=== PATIENT | female | born 1980 | race African-American/Black ===

== ENCOUNTER 2016-12-20 07:19 | Day surgery (SDC) | payer MEDICAID ==
[2016-12-20 08:57] LABS: GLUCOSE CSF 51 mg/dL (41-75)
[2016-12-21] MEDS ORDERED: ARIP30TA3 PO (15:48)
[2016-12-21] MEDS ORDERED: DIPH25CA83 PO (18:09)
[2016-12-21] MEDS ORDERED: BUPR100T5 PO (18:09)
[2016-12-21] MEDS ORDERED: HYDR12.529 PO (18:09)
[2016-12-21] MEDS ORDERED: HALO2TAB PO (18:09)
== END 2016-12-20 12:30 | disposition home or self-care (01) ==
LOC: RAD 07:19
PROVIDERS: ATTEND Psychiatry & Neurology Neurology
DX: R51 Headache (principal)
CPT/HCPCS: 62270; 77003; 82945; 84157; 89050

== ENCOUNTER 2017-02-13 22:20 | Emergency (ER) | payer MEDICAID ==
[~2017-02-13] VITALS: Ht 162.6 cm; Wt 106.8 kg
[~2017-02-13 22:20] MED LIST: ARIP30TA2 PO; BUPR100T5 PO; DIPH25CA83 PO; HALO2TAB PO; HYDR12.529 PO
[2017-02-14 00:16] VITALS: BP 135/80
[2017-02-14] MEDS ORDERED: IPRATROPIUM/ALBUTEROL 0.5-3(2.5)MG/3ML NEB HHN ONE (01:00)
[2017-02-14] MEDS ORDERED: PREDNISONE 20MG TABLET PO ONE (01:45)
== END 2017-02-14 02:14 | disposition home or self-care (01) ==
LOC: ER 22:32
DX: J45.901 Unspecified asthma with (acute) exacerbation (principal); J32.9 Chronic sinusitis, unspecified; J40 Bronchitis, not specified as acute or chronic; I10 Essential (primary) hypertension; I25.2 Old myocardial infarction
CPT/HCPCS: 94640; 99283; J7512; J7620

== ENCOUNTER 2017-02-17 14:52 | Emergency (ER) | payer MEDICAID ==
[~2017-02-17] VITALS: Ht 162.6 cm; Wt 107.0 kg
[2017-02-17] MEDS ORDERED: SODIUM CHLORIDE 0.9% 1,000 ML IV ONE (18:08)
[2017-02-17 18:24] LABS: BASOPHILS % 0.3 % (0.0-2.0); HEMATOCRIT. 42.9 % (36.0-48.0); HEMOGLOBIN. 14.2 g/dL (12.0-16.0); LYMPHOCYTES % 12.7 % (20.0-50.0); MEAN CORPUSCULAR HEMOGLOBIN 27.6 pg (28.0-32.0); MEAN CORPUSCULAR VOLUME 83.5 fL (81.0-99.0); MEAN PLATELET VOLUME 8.6 fl (7.4-10.4); MONOCYTES % 4.5 % (2.0-8.0); NEUTROPHILS % 82.5 % (40.0-76.0); PLATELET 403 x1000/uL (130-400); RED BLOOD CELL COUNT 5.13 mill/uL (4.2-5.4); RED CELL DISTRIBUTION WIDTH 14.6 % (11.6-14.6)
[2017-02-17 18:25] LABS: CHLORIDE 107 mEq/L (98-107)
[2017-02-17 18:33] LABS: CARBON DIOXIDE 25 mEq/L (21-32); HCG SCREEN NEGATIVE; PROTHROMBIN TIME 10.8 sec
[2017-02-17 18:35] LABS: B-HCG QUANTITATIVE < 1 mIU/mL (<3)
[2017-02-17] MEDS ORDERED: KETOROLAC 30MG/ML VIAL IV ONE (19:30)
[2017-02-17] MEDS ORDERED: ONDANSETRON HCL 4MG/2ML VIAL IV ONE (19:30)
[2017-02-17] MEDS ORDERED: MORPHINE SULFATE 4 MG/ML CPJ (NOT FOR IM USE) IV ONE (20:00)
[2017-02-17 23:20] LABS: *AMPHETAMINES SCREEN URINE NEGATIVE (NEGATIVE); *BARBITURATES SCREEN URINE NEGATIVE (NEGATIVE); *BENZODIAZEPINES SCREEN URINE NEGATIVE (NEGATIVE); *COCAINE SCREEN URINE NEGATIVE (NEGATIVE); CANNABINOID URINE SCREEN NEGATIVE (NEGATIVE); METHADONE URINE SCREEN NEGATIVE (NEGATIVE); OPIATES URINE SCREEN NEGATIVE (NEGATIVE); PHENCYCLIDINE URINE SCREEN NEGATIVE (NEGATIVE)
[2017-02-17] MEDS ORDERED: IPRATROPIUM/ALBUTEROL 0.5-3(2.5)MG/3ML NEB HHN ONE (23:45)
[2017-02-17 23:51] LABS: CLARITY URINE TURBID (CLEAR); COLOR URINE YELLOW (YELLOW); GLUCOSE URINE NEGATIVE (NEGATIVE); KETONES URINE NEGATIVE (NEGATIVE); LEUKOCYTE ESTERASE URINE NEGATIVE (NEGATIVE); NITRITE URINE NEGATIVE (NEGATIVE); OCCULT BLOOD URINE 3+ (NEGATIVE); PH URINE 5.5 (4.5-8.0); PROTEIN URINE NEGATIVE (NEGATIVE); SPECIFIC GRAVITY URINE 1.033 (1.005-1.030); UROBILINOGEN URINE 0.2 E.U./dL (0.2-1.0)
[2017-02-18 00:39] VITALS: BP 138/67
== END 2017-02-18 00:44 | disposition home or self-care (01) ==
LOC: ER 18:10
DX: N93.8 Other specified abnormal uterine and vaginal bleeding (principal); R10.9 Unspecified abdominal pain; J45.909 Unspecified asthma, uncomplicated; F31.9 Bipolar disorder, unspecified; I10 Essential (primary) hypertension; I25.2 Old myocardial infarction; F20.9 Schizophrenia, unspecified
CPT/HCPCS: 36415; 76830; 76856; 80048; 80305; 81001; 84702; 84703; 85025; 85610; 86850; 86900; 86901; 96361; 96374; 96375; 99285; J1885; J2270; J2405; J7030; Z7610; J7620

== ENCOUNTER 2017-03-07 20:43 | Emergency (ER) | payer MEDICAID ==
[~2017-03-07] VITALS: Ht 162.6 cm; Wt 133.5 kg
[2017-03-07] MEDS ORDERED: ALBU2SYR PO (20:55)
[2017-03-07] MEDS ORDERED: ESCI5TAB PO (20:55)
[2017-03-07 22:45] LABS: BASOPHILS % 0.6 % (0.0-2.0); HEMATOCRIT. 39.3 % (36.0-48.0); HEMOGLOBIN. 13.3 g/dL (12.0-16.0); LYMPHOCYTES % 39.6 % (20.0-50.0); MEAN CORPUSCULAR HEMOGLOBIN 27.8 pg (28.0-32.0); MEAN CORPUSCULAR VOLUME 82.2 fL (81.0-99.0); MEAN PLATELET VOLUME 8.4 fl (7.4-10.4); MONOCYTES % 7.1 % (2.0-8.0); NEUTROPHILS % 51.7 % (40.0-76.0); PLATELET 310 x1000/uL (130-400); RED BLOOD CELL COUNT 4.78 mill/uL (4.2-5.4); RED CELL DISTRIBUTION WIDTH 14.6 % (11.6-14.6)
[2017-03-07 22:49] LABS: CHLORIDE 102 mEq/L (98-107)
[2017-03-07 22:53] LABS: HCG SCREEN NEGATIVE
[2017-03-07 22:54] LABS: CARBON DIOXIDE 28 mEq/L (21-32); ETHANOL BLOOD < 10 mg/dL
[2017-03-07] MEDS ORDERED: POTASSIUM CHLORIDE 20MEQ TABLET SR PO ONE (23:15)
[2017-03-07 23:54] LABS: CLARITY URINE CLEAR (CLEAR); COLOR URINE YELLOW (YELLOW); GLUCOSE URINE NEGATIVE (NEGATIVE); KETONES URINE 1+ (NEGATIVE); LEUKOCYTE ESTERASE URINE NEGATIVE (NEGATIVE); NITRITE URINE NEGATIVE (NEGATIVE); OCCULT BLOOD URINE 2+ (NEGATIVE); PROTEIN URINE NEGATIVE (NEGATIVE); SPECIFIC GRAVITY URINE 1.027 (1.005-1.030); UROBILINOGEN URINE 0.2 E.U./dL (0.2-1.0)
[2017-03-08 00:30] LABS: *AMPHETAMINES SCREEN URINE NEGATIVE (NEGATIVE); *BARBITURATES SCREEN URINE NEGATIVE (NEGATIVE); *BENZODIAZEPINES SCREEN URINE NEGATIVE (NEGATIVE); *COCAINE SCREEN URINE NEGATIVE (NEGATIVE); CANNABINOID URINE SCREEN NEGATIVE (NEGATIVE); METHADONE URINE SCREEN NEGATIVE (NEGATIVE); OPIATES URINE SCREEN NEGATIVE (NEGATIVE); PHENCYCLIDINE URINE SCREEN NEGATIVE (NEGATIVE)
[2017-03-08] MEDS ORDERED: POTASSIUM CHLORIDE 20MEQ TABLET SR PO ONE (03:54)
[2017-03-08 13:06] VITALS: BP 118/62
== END 2017-03-08 13:09 | disposition home or self-care (01) ==
LOC: ER 21:29
DX: R45.851 Suicidal ideations (principal); E87.6 Hypokalemia; F31.9 Bipolar disorder, unspecified; F20.9 Schizophrenia, unspecified; R44.0 Auditory hallucinations; J45.909 Unspecified asthma, uncomplicated; I10 Essential (primary) hypertension
CPT/HCPCS: 36415; 80048; 80305; 80307; 80329; 81001; 84703; 85025; 99284; G0482; Z7610

== ENCOUNTER 2017-05-24 13:05 | Emergency (ER) | payer MEDICAID ==
[~2017-05-24] VITALS: Ht 162.6 cm; Wt 107.0 kg
[~2017-05-24 13:05] MED LIST changes: +ALBU2SYR PO; +ESCI5TAB PO
[2017-05-24] MEDS ORDERED: ACETAMINOPHEN 500MG TABLET PO ONE (14:00)
[2017-05-24 14:20] LABS: CLARITY URINE CLOUDY (CLEAR); COLOR URINE YELLOW (YELLOW); GLUCOSE URINE NEGATIVE (NEGATIVE); KETONES URINE NEGATIVE (NEGATIVE); LEUKOCYTE ESTERASE URINE NEGATIVE (NEGATIVE); NITRITE URINE NEGATIVE (NEGATIVE); OCCULT BLOOD URINE 2+ (NEGATIVE); PROTEIN URINE NEGATIVE (NEGATIVE); SPECIFIC GRAVITY URINE 1.029 (1.005-1.030); UROBILINOGEN URINE 0.2 E.U./dL (0.2-1.0)
[2017-05-24 15:31] LABS: BASOPHILS % 0.2 % (0.0-2.0); EOSINOPHILS % 1.6 % (0.0-5.0); HEMATOCRIT. 42.2 % (36.0-48.0); HEMOGLOBIN. 14.3 g/dL (12.0-16.0); LYMPHOCYTES % 27.2 % (20.0-50.0); MEAN CORPUSCULAR HEMOGLOBIN 27.9 pg (28.0-32.0); MEAN CORPUSCULAR VOLUME 82.8 fL (81.0-99.0); PLATELET 297 x1000/uL (130-400); RED CELL DISTRIBUTION WIDTH 14.2 % (11.6-14.6)
[2017-05-24 15:38] LABS: B-HCG QUANTITATIVE < 1 mIU/mL (<3); CARBON DIOXIDE 26 mEq/L (21-32); CHLORIDE 108 mEq/L (98-107)
[2017-05-24 16:23] VITALS: BP 110/60
== END 2017-05-24 16:55 | disposition home or self-care (01) ==
LOC: ER 13:50
DX: O26.891 Other specified pregnancy related conditions, first trimester (principal); M54.5 Low back pain; I25.2 Old myocardial infarction; O99.511 Diseases of the respiratory system complicating pregnancy, first trimester; J45.909 Unspecified asthma, uncomplicated; O16.1 Unspecified maternal hypertension, first trimester; F20.9 Schizophrenia, unspecified; O99.341 Other mental disorders complicating pregnancy, first trimester; F31.9 Bipolar disorder, unspecified; Z3A.12 12 weeks gestation of pregnancy
CPT/HCPCS: 36415; 76770; 76830; 76856; 80053; 81001; 81025; 84702; 85025; 99285; Z7610

== ENCOUNTER 2018-10-16 10:27 | Inpatient (IN) | payer MEDICAID ==
[~2018-10-16] VITALS: Ht 160 cm; Wt 110.7 kg
[~2018-10-16 10:27] MED LIST changes: -ALBU2SYR PO; +ALBU2SYR3 PO
[2018-10-16] MEDS ORDERED: SODIUM CHLORIDE 0.9% 1,000 ML IV ONE (10:40)
[2018-10-16 11:14] LABS: BASOPHILS % 0.5 % (0.0-2.0); EOSINOPHILS % 1.8 % (0.0-5.0); HEMATOCRIT. 42.8 % (36.0-48.0); HEMOGLOBIN. 14.1 g/dL (12.0-16.0); LYMPHOCYTES % 38.3 % (20.0-50.0); MEAN CORPUSCULAR HEMOGLOBIN 27.8 pg (28.0-32.0); MEAN CORPUSCULAR VOLUME 84.4 fL (81.0-99.0); MEAN PLATELET VOLUME 8.9 fl (7.4-10.4); MONOCYTES % 7.9 % (2.0-8.0); NEUTROPHILS % 51.5 % (40.0-76.0); PLATELET 248 x1000/uL (130-400); RED BLOOD CELL COUNT 5.07 mill/uL (4.2-5.4); RED CELL DISTRIBUTION WIDTH 15.8 % (11.6-14.6)
[2018-10-16 11:17] LABS: CHLORIDE 112 mEq/L (98-107)
[2018-10-16 11:20] LABS: HCG SCREEN NEGATIVE
[2018-10-16 11:22] LABS: INR 1.1; PARTIAL THROMBOPLASTIN TIME 29.4 sec (23.4-31.0); PROTHROMBIN TIME 10.6 sec (9.1-11.1)
[2018-10-16 11:25] LABS: CREATINE KINASE 60 IU/L (26-192)
[2018-10-16 11:30] LABS: CREATINE KINASE MB FRACTION < 1.0 ng/mL (0.5-3.6)
[2018-10-16 12:30] VITALS: BP 159/70
[2018-10-16] MEDS ORDERED: ACETAMINOPHEN 325MG TABLET PO PRN (12:30)
[2018-10-16] MEDS ORDERED: ONDANSETRON HCL 4MG/2ML INJ IV PRN (12:30)
[2018-10-16 13:02] VITALS: BP 159/70
[2018-10-16] MEDS ORDERED: LANS30CA55 PO (13:19)
[2018-10-16] MEDS ORDERED: CONGENTIN (13:19)
[2018-10-16] MEDS ORDERED: [UNRECOGNIZED DRUG - OTHER] (13:19)
[2018-10-16] MEDS: AMLODIPINE 5MG TABLET PO SCH (14:45)
[2018-10-16] MEDS ORDERED: POTASSIUM CHLORIDE 20MEQ TABLET SR PO SCH (15:45)
[2018-10-16 16:00] VITALS: BP 104/56
[2018-10-16] MEDS ORDERED: CALC-1042 PO (16:20)
[2018-10-16] MEDS ORDERED: MULT-1146 PO (16:20)
[2018-10-16 20:00] VITALS: BP 110/50
[2018-10-16] MEDS: HYDRALAZINE HCL 25MG TABLET PO SCH (21:00)
[2018-10-16] MEDS ORDERED: BUPROPION HCL 100MG TABLET PO SCH (21:00)
[2018-10-16] MEDS: BENZTROPINE MESYLATE 1MG TABLET PO SCH (21:34)
[2018-10-16 21:54] LABS: CLARITY URINE CLEAR (CLEAR); COLOR URINE YELLOW (YELLOW); KETONES URINE TRACE (NEGATIVE); LEUKOCYTE ESTERASE URINE NEGATIVE (NEGATIVE); NITRITE URINE NEGATIVE (NEGATIVE); OCCULT BLOOD URINE NEGATIVE (NEGATIVE); PH URINE 7.5 (4.5-8.0); PROTEIN URINE NEGATIVE (NEGATIVE)
[2018-10-16 22:06] LABS: *AMPHETAMINES SCREEN URINE NEGATIVE (NEGATIVE)
[2018-10-16 22:07] LABS: *BARBITURATES SCREEN URINE NEGATIVE (NEGATIVE); *BENZODIAZEPINES SCREEN URINE NEGATIVE (NEGATIVE); *COCAINE SCREEN URINE NEGATIVE (NEGATIVE); CANNABINOID URINE SCREEN NEGATIVE (NEGATIVE); METHADONE URINE SCREEN NEGATIVE (NEGATIVE); OPIATES URINE SCREEN NEGATIVE (NEGATIVE); PHENCYCLIDINE URINE SCREEN NEGATIVE (NEGATIVE)
[2018-10-17] VITALS: BP 107/57
[2018-10-17 04:00] VITALS: BP 117/49
[2018-10-17] MEDS: LANSOPRAZOLE 30MG DR CAPSULE NG SCH (06:28)
[2018-10-17 06:54] LABS: BASOPHILS % 0.4 % (0.0-2.0); EOSINOPHILS % 2.6 % (0.0-5.0); HEMATOCRIT. 39.4 % (36.0-48.0); HEMOGLOBIN. 13.3 g/dL (12.0-16.0); LYMPHOCYTES % 39.8 % (20.0-50.0); MEAN CORPUSCULAR HEMOGLOBIN 28.2 pg (28.0-32.0); MEAN CORPUSCULAR VOLUME 83.6 fL (81.0-99.0); MEAN PLATELET VOLUME 9.5 fl (7.4-10.4); MONOCYTES % 9.6 % (2.0-8.0); NEUTROPHILS % 47.6 % (40.0-76.0); PLATELET 134 x1000/uL (130-400); RED BLOOD CELL COUNT 4.71 mill/uL (4.2-5.4); RED CELL DISTRIBUTION WIDTH 15.4 % (11.6-14.6)
[2018-10-17 06:59] LABS: CHLORIDE 114 mEq/L (98-107)
[2018-10-17 08:00] VITALS: BP 105/47
[2018-10-17] MEDS: AMLODIPINE 5MG TABLET PO SCH (08:51)
[2018-10-17] MEDS: HYDRALAZINE HCL 25MG TABLET PO SCH (08:51)
[2018-10-17] MEDS: BUPROPION HCL 100MG SR TABLET PO SCH ×2 (08:51→21:49)
[2018-10-17] MEDS: MULTIVITAMINS,THER W-MINERALS TABLET PO SCH (08:52)
[2018-10-17] MEDS: CALCIUM CARBONATE 1250MG TABLET (500MG ELEMENTAL CALCIUM) PO SCH (08:52)
[2018-10-17] MEDS ORDERED: POTASSIUM CHLORIDE 20MEQ TABLET SR PO NR (10:00)
[2018-10-17 12:00] VITALS: BP 91/36
[2018-10-17 16:00] VITALS: BP 96/50
[2018-10-17 20:00] VITALS: BP_SYST 102; BP_SYST 119; BP_SYST 124; BP_DIAS 44; BP_DIAS 72
[2018-10-17] MEDS: BENZTROPINE MESYLATE 1MG TABLET PO SCH (21:49)
[2018-10-17] MEDS: ARIPIPRAZOLE 10MG TABLET PO SCH (21:49)
[2018-10-18] VITALS: BP 108/60
[2018-10-18 04:00] VITALS: BP 110/50
[2018-10-18] MEDS: LANSOPRAZOLE 30MG DR CAPSULE NG SCH (06:04)
[2018-10-18 08:00] VITALS: BP 124/79
[2018-10-18] MEDS: MULTIVITAMINS,THER W-MINERALS TABLET PO SCH (09:12)
[2018-10-18] MEDS: ARIPIPRAZOLE 10MG TABLET PO SCH (09:12)
[2018-10-18] MEDS: CALCIUM CARBONATE 1250MG TABLET (500MG ELEMENTAL CALCIUM) PO SCH (09:12)
[2018-10-18] MEDS: BUPROPION HCL 100MG SR TABLET PO SCH (09:12)
[2018-10-18 11:44] LABS: CHLORIDE 111 mEq/L (98-107)
[2018-10-18 11:47] LABS: BASOPHILS % 0.4 % (0.0-2.0); EOSINOPHILS % 1.8 % (0.0-5.0); HEMATOCRIT. 41.2 % (36.0-48.0); HEMOGLOBIN. 13.7 g/dL (12.0-16.0); LYMPHOCYTES % 33.7 % (20.0-50.0); MEAN CORPUSCULAR HEMOGLOBIN 27.8 pg (28.0-32.0); MEAN CORPUSCULAR VOLUME 83.7 fL (81.0-99.0); MONOCYTES % 10.7 % (2.0-8.0); NEUTROPHILS % 53.4 % (40.0-76.0); PLATELET 265 x1000/uL (130-400); RED BLOOD CELL COUNT 4.92 mill/uL (4.2-5.4); RED CELL DISTRIBUTION WIDTH 15.7 % (11.6-14.6)
[2018-10-18 12:00] VITALS: BP 92/37
[2018-10-18 14:50] VITALS: BP 110/69
== END 2018-10-18 16:10 | disposition home or self-care (01) | DRG 201 ==
LOC: ER 10:27 → 5WST 11:30 → EDBEDREQ 11:33 → ENRESERV 11:47
PROVIDERS: ADMIT Internal Medicine; ATTEND Internal Medicine
DX: R00.1 Bradycardia, unspecified (principal); E87.8 Other disorders of electrolyte and fluid balance, not elsewhere classified; I42.9 Cardiomyopathy, unspecified; F20.9 Schizophrenia, unspecified; Z68.41 Body mass index [BMI] 40.0-44.9, adult; I11.0 Hypertensive heart disease with heart failure; I50.22 Chronic systolic (congestive) heart failure; D64.9 Anemia, unspecified; E66.9 Obesity, unspecified; F31.9 Bipolar disorder, unspecified; I25.10 Atherosclerotic heart disease of native coronary artery without angina pectoris; J45.909 Unspecified asthma, uncomplicated; Z98.84 Bariatric surgery status; I25.2 Old myocardial infarction; Z79.899 Other long term (current) drug therapy
CPT/HCPCS: 36415; 71045; 80048; 80305; 82550; 82553; 83735; 83880; 84443; 84484; 84703; 93005; 93306; 93970; 96360; 99285; J7030

== ENCOUNTER 2018-10-30 20:38 | Emergency (ER) | payer MEDICAID ==
[~2018-10-30] VITALS: Ht 162.6 cm; Wt 111.0 kg
[~2018-10-30 20:38] MED LIST changes: +CALC-1042 PO; +CONGENTIN; -DIPH25CA83 PO; -HALO2TAB PO; -HYDR12.529 PO; +LANS30CA55 PO; +MULT-1146 PO; +[UNRECOGNIZED DRUG - OTHER]
[2018-10-30] MEDS ORDERED: SODIUM CHLORIDE 0.9% 1,000 ML IV ONE (22:31)
[2018-10-30 22:49] LABS: CHLORIDE 115 mEq/L (98-107)
[2018-10-30 22:50] LABS: BASOPHILS % 0.4 % (0.0-2.0); EOSINOPHILS % 3.8 % (0.0-5.0); HEMATOCRIT. 35.2 % (36.0-48.0); HEMOGLOBIN. 11.9 g/dL (12.0-16.0); MEAN CORPUSCULAR HEMOGLOBIN 27.9 pg (28.0-32.0); MEAN CORPUSCULAR VOLUME 82.7 fL (81.0-99.0); MEAN PLATELET VOLUME 8.9 fl (7.4-10.4); MONOCYTES % 9.9 % (2.0-8.0); NEUTROPHILS % 55.9 % (40.0-76.0); PLATELET 236 x1000/uL (130-400); RED BLOOD CELL COUNT 4.26 mill/uL (4.2-5.4); RED CELL DISTRIBUTION WIDTH 15.5 % (11.6-14.6)
[2018-10-30 22:51] LABS: CLARITY URINE CLOUDY (CLEAR); COLOR URINE YELLOW (YELLOW); KETONES URINE NEGATIVE (NEGATIVE); LEUKOCYTE ESTERASE URINE NEGATIVE (NEGATIVE); NITRITE URINE NEGATIVE (NEGATIVE); OCCULT BLOOD URINE NEGATIVE (NEGATIVE); PROTEIN URINE NEGATIVE (NEGATIVE); SPECIFIC GRAVITY URINE 1.029 (1.005-1.030); UROBILINOGEN URINE 0.2 E.U./dL (0.2-1.0)
[2018-10-30] MEDS ORDERED: POTASSIUM CHLORIDE 20MEQ TABLET SR PO ONE (23:30)
[2018-10-31 00:02] VITALS: BP 126/88
== END 2018-10-31 00:03 | disposition home or self-care (01) ==
LOC: ER 21:08
DX: R42 Dizziness and giddiness (principal); E87.6 Hypokalemia
CPT/HCPCS: 36415; 71045; 80053; 81003; 81025; 85025; 93005; 96360; 99284; J7030; Z7610

== ENCOUNTER 2018-12-02 16:55 | Inpatient (IN) | payer MEDICAID ==
[~2018-12-02] VITALS: Ht 162.6 cm; Wt 109.3 kg
[2018-12-02 19:01] LABS: BASOPHILS % 0.2 % (0.0-2.0); EOSINOPHILS % 3.8 % (0.0-5.0); HEMATOCRIT. 37.6 % (36.0-48.0); HEMOGLOBIN. 12.6 g/dL (12.0-16.0); LYMPHOCYTES % 36.9 % (20.0-50.0); MEAN CORPUSCULAR HEMOGLOBIN 27.6 pg (28.0-32.0); MEAN CORPUSCULAR VOLUME 82.1 fL (81.0-99.0); MEAN PLATELET VOLUME 8.4 fl (7.4-10.4); MONOCYTES % 6.3 % (2.0-8.0); NEUTROPHILS % 52.8 % (40.0-76.0); PLATELET 263 x1000/uL (130-400); RED BLOOD CELL COUNT 4.58 mill/uL (4.2-5.4); RED CELL DISTRIBUTION WIDTH 15.6 % (11.6-14.6)
[2018-12-02 19:05] LABS: CHLORIDE 112 mEq/L (98-107)
[2018-12-02] MEDS ORDERED: ACETAMINOPHEN 325MG TABLET PO PRN (21:30)
[2018-12-02] MEDS ORDERED: ONDANSETRON HCL 4MG/2ML INJ IV PRN (21:30)
[2018-12-02 22:05] VITALS: BP 133/85
[2018-12-02 22:06] VITALS: BP 133/85
[2018-12-02] MEDS: LOSARTAN POTASSIUM 25 MG TABLET PO SCH (23:30)
[2018-12-02 23:56] LABS: CLARITY URINE CLEAR (CLEAR); COLOR URINE YELLOW (YELLOW); KETONES URINE 1+ (NEGATIVE); LEUKOCYTE ESTERASE URINE NEGATIVE (NEGATIVE); NITRITE URINE NEGATIVE (NEGATIVE); OCCULT BLOOD URINE NEGATIVE (NEGATIVE); PROTEIN URINE NEGATIVE (NEGATIVE); SPECIFIC GRAVITY URINE 1.027 (1.005-1.030); UROBILINOGEN URINE 0.2 E.U./dL (0.2-1.0)
[2018-12-02 23:58] VITALS: BP 102/55
[2018-12-03 00:15] LABS: *COCAINE SCREEN URINE NEGATIVE (NEGATIVE); METHADONE URINE SCREEN NEGATIVE (NEGATIVE); OPIATES URINE SCREEN NEGATIVE (NEGATIVE)
[2018-12-03 00:16] LABS: *AMPHETAMINES SCREEN URINE NEGATIVE (NEGATIVE); *BARBITURATES SCREEN URINE NEGATIVE (NEGATIVE); *BENZODIAZEPINES SCREEN URINE NEGATIVE (NEGATIVE); CANNABINOID URINE SCREEN NEGATIVE (NEGATIVE); PHENCYCLIDINE URINE SCREEN NEGATIVE (NEGATIVE)
[2018-12-03 04:00] VITALS: BP 112/55
[2018-12-03 06:12] LABS: BASOPHILS % 0.3 % (0.0-2.0); EOSINOPHILS % 4.3 % (0.0-5.0); HEMATOCRIT. 37.8 % (36.0-48.0); HEMOGLOBIN. 12.5 g/dL (12.0-16.0); LYMPHOCYTES % 43.7 % (20.0-50.0); MEAN CORPUSCULAR HEMOGLOBIN 27.2 pg (28.0-32.0); MEAN CORPUSCULAR VOLUME 82.1 fL (81.0-99.0); MEAN PLATELET VOLUME 8.8 fl (7.4-10.4); MONOCYTES % 6.8 % (2.0-8.0); NEUTROPHILS % 44.9 % (40.0-76.0); PLATELET 249 x1000/uL (130-400); RED CELL DISTRIBUTION WIDTH 15.1 % (11.6-14.6)
[2018-12-03 06:24] LABS: CHLORIDE 111 mEq/L (98-107)
[2018-12-03 08:00] VITALS: BP 104/59
[2018-12-03] MEDS: LOSARTAN POTASSIUM 25 MG TABLET PO SCH (09:57)
[2018-12-03] MEDS: MULTIVITAMINS,THER W-MINERALS TABLET PO SCH (09:57)
[2018-12-03 12:00] VITALS: BP 100/54
[2018-12-03 16:38] VITALS: BP 121/67
[2018-12-03 20:00] VITALS: BP 110/61
[2018-12-04] VITALS: BP 105/72
[2018-12-04 04:00] VITALS: BP 108/57
[2018-12-04 07:45] LABS: BASOPHILS % 0.1 % (0.0-2.0); HEMOGLOBIN. 12.3 g/dL (12.0-16.0); LYMPHOCYTES % 33.3 % (20.0-50.0); MEAN CORPUSCULAR HEMOGLOBIN 27.3 pg (28.0-32.0); MEAN CORPUSCULAR VOLUME 82.1 fL (81.0-99.0); MEAN PLATELET VOLUME 8.8 fl (7.4-10.4); MONOCYTES % 7.5 % (2.0-8.0); NEUTROPHILS % 55.1 % (40.0-76.0); PLATELET 246 x1000/uL (130-400); RED BLOOD CELL COUNT 4.51 mill/uL (4.2-5.4); RED CELL DISTRIBUTION WIDTH 14.9 % (11.6-14.6)
[2018-12-04 07:51] LABS: CHLORIDE 115 mEq/L (98-107)
[2018-12-04 08:00] VITALS: BP 121/69
[2018-12-04] MEDS ORDERED: MAGNESIUM OXIDE 400MG TABLET PO SCH (10:00)
[2018-12-04] MEDS ORDERED: POTASSIUM CHLORIDE 20MEQ TABLET SR PO SCH (10:00)
[2018-12-04 11:28] VITALS: BP 121/69
[2018-12-04] MEDS: LOSARTAN POTASSIUM 25 MG TABLET PO SCH (11:43)
[2018-12-04] MEDS: MULTIVITAMINS,THER W-MINERALS TABLET PO SCH (11:43)
== END 2018-12-04 12:15 | disposition home or self-care (01) | DRG 201 ==
LOC: ER 16:55 → 8WST 21:06 → EDBEDREQ 21:08 → EDBEDREQTM 21:08 → ENRESERV 21:15
PROVIDERS: ADMIT Internal Medicine; ATTEND Internal Medicine
PROC: B5181ZA Fluoroscopy of Superior Vena Cava using Low Osmolar Contrast, Guidance (ICD-10-PCS; principal; 2018-12-03)
PROC: 02HV33Z Insertion of Infusion Device into Superior Vena Cava, Percutaneous Approach (ICD-10-PCS; 2018-12-03)
PROC: B548ZZA Ultrasonography of Superior Vena Cava, Guidance (ICD-10-PCS; 2018-12-03)
DX: R00.1 Bradycardia, unspecified (principal); E87.8 Other disorders of electrolyte and fluid balance, not elsewhere classified; I42.9 Cardiomyopathy, unspecified; E44.1 Mild protein-calorie malnutrition; E83.42 Hypomagnesemia; I11.0 Hypertensive heart disease with heart failure; I50.22 Chronic systolic (congestive) heart failure; F20.9 Schizophrenia, unspecified; J45.909 Unspecified asthma, uncomplicated; E87.6 Hypokalemia; I25.10 Atherosclerotic heart disease of native coronary artery without angina pectoris; Z82.49 Family history of ischemic heart disease and other diseases of the circulatory system; Z79.899 Other long term (current) drug therapy; Z98.84 Bariatric surgery status; Z68.41 Body mass index [BMI] 40.0-44.9, adult
CPT/HCPCS: 36415; 36569; 36573; 71045; 80048; 80305; 83735; 83880; 84443; 84484; 93005; 96361; 96374; 96375; 99285; C1725

== ENCOUNTER 2018-12-25 04:18 | Emergency (ER) | payer MEDICAID ==
[~2018-12-25] VITALS: Ht 162.6 cm; Wt 104.0 kg
[~2018-12-25 04:18] MED LIST changes: -ARIP30TA2 PO
[2018-12-25] MEDS ORDERED: SODIUM CHLORIDE 0.9% 1,000 ML IV ONE (04:55)
[2018-12-25 05:18] LABS: BASOPHILS % 0.5 % (0.0-2.0); EOSINOPHILS % 3.3 % (0.0-5.0); HEMATOCRIT. 40.7 % (36.0-48.0); HEMOGLOBIN. 13.5 g/dL (12.0-16.0); LYMPHOCYTES % 44.2 % (20.0-50.0); MEAN CORPUSCULAR HEMOGLOBIN 27.4 pg (28.0-32.0); MEAN CORPUSCULAR VOLUME 82.8 fL (81.0-99.0); MEAN PLATELET VOLUME 8.5 fl (7.4-10.4); MONOCYTES % 8.1 % (2.0-8.0); NEUTROPHILS % 43.9 % (40.0-76.0); PLATELET 269 x1000/uL (130-400); RED BLOOD CELL COUNT 4.91 mill/uL (4.2-5.4); RED CELL DISTRIBUTION WIDTH 14.9 % (11.6-14.6)
[2018-12-25 05:23] LABS: CHLORIDE 113 mEq/L (98-107)
[2018-12-25 05:24] LABS: PROTHROMBIN TIME 10.3 sec (9.6-11.0)
[2018-12-25 05:29] LABS: HCG SCREEN NEGATIVE
[2018-12-25 05:29] LABS: CLARITY URINE CLOUDY (CLEAR); COLOR URINE YELLOW (YELLOW); KETONES URINE TRACE (NEGATIVE); LEUKOCYTE ESTERASE URINE NEGATIVE (NEGATIVE); NITRITE URINE NEGATIVE (NEGATIVE); OCCULT BLOOD URINE NEGATIVE (NEGATIVE); PROTEIN URINE NEGATIVE (NEGATIVE); SPECIFIC GRAVITY URINE 1.038 (1.005-1.030)
[2018-12-25 06:27] VITALS: BP 95/58
[2018-12-25] MEDS ORDERED: ONDANSETRON HCL 4MG/2ML INJ IV ONE (06:30)
== END 2018-12-25 07:12 | disposition home or self-care (01) ==
LOC: ER 04:18
DX: R11.2 Nausea with vomiting, unspecified (principal); R19.7 Diarrhea, unspecified; N39.0 Urinary tract infection, site not specified; J45.909 Unspecified asthma, uncomplicated; I10 Essential (primary) hypertension; Z98.890 Other specified postprocedural states; Z79.899 Other long term (current) drug therapy
CPT/HCPCS: 36415; 80053; 81003; 81025; 83690; 84703; 85025; 85610; 96361; 96374; 99283; A4217; J2405; J7030; Z7610

== ENCOUNTER 2018-12-31 20:24 | Emergency (ER) | payer MEDICAID ==
[~2018-12-31] VITALS: Ht 162.6 cm; Wt 104.0 kg
[2018-12-31 20:45] VITALS: BP 130/80
== END 2019-01-01 02:24 | disposition left against medical advice (07) ==
LOC: ER 20:24
DX: R11.2 Nausea with vomiting, unspecified (principal); Z53.21 Procedure and treatment not carried out due to patient leaving prior to being seen by health care provider

== ENCOUNTER 2019-01-06 15:42 | Emergency (ER) | payer MEDICAID ==
[~2019-01-06] VITALS: Ht 162.6 cm; Wt 104.0 kg
[2019-01-06 16:25] LABS: CHLORIDE 112 mEq/L (98-107)
[2019-01-06 16:26] LABS: BASOPHILS % 0.4 % (0.0-2.0); EOSINOPHILS % 3.3 % (0.0-5.0); HEMATOCRIT. 38.1 % (36.0-48.0); HEMOGLOBIN. 12.9 g/dL (12.0-16.0); LYMPHOCYTES % 41.9 % (20.0-50.0); MEAN CORPUSCULAR HEMOGLOBIN 28.1 pg (28.0-32.0); MEAN CORPUSCULAR VOLUME 83.4 fL (81.0-99.0); MEAN PLATELET VOLUME 8.5 fl (7.4-10.4); MONOCYTES % 7.3 % (2.0-8.0); NEUTROPHILS % 47.1 % (40.0-76.0); PLATELET 256 x1000/uL (130-400); RED BLOOD CELL COUNT 4.57 mill/uL (4.2-5.4); RED CELL DISTRIBUTION WIDTH 14.3 % (11.6-14.6)
[2019-01-06 16:27] LABS: PROTHROMBIN TIME 10.6 sec (9.6-11.0)
[2019-01-06 16:32] LABS: HCG SCREEN NEGATIVE
[2019-01-06] MEDS ORDERED: KETOROLAC 60MG/2ML VIAL IM ONE (16:45)
[2019-01-06] MEDS ORDERED: ONDANSETRON HCL 4MG/2ML INJ IV STA (17:32)
[2019-01-06] MEDS ORDERED: SODIUM CHLORIDE 0.9% 1,000 ML IV ONE (17:32)
[2019-01-06 17:38] LABS: CLARITY URINE CLEAR (CLEAR); COLOR URINE DARK YELLOW (YELLOW); KETONES URINE TRACE (NEGATIVE); LEUKOCYTE ESTERASE URINE NEGATIVE (NEGATIVE); NITRITE URINE NEGATIVE (NEGATIVE); OCCULT BLOOD URINE NEGATIVE (NEGATIVE); PH URINE 5.5 (4.5-8.0); PROTEIN URINE NEGATIVE (NEGATIVE); SPECIFIC GRAVITY URINE 1.042 (1.005-1.030)
[2019-01-06] MEDS ORDERED: FAMOTIDINE 20MG/2ML VIAL IV ONE (17:45)
[2019-01-06 17:53] LABS: *AMPHETAMINES SCREEN URINE NEGATIVE (NEGATIVE); *BARBITURATES SCREEN URINE NEGATIVE (NEGATIVE); *BENZODIAZEPINES SCREEN URINE NEGATIVE (NEGATIVE); *COCAINE SCREEN URINE NEGATIVE (NEGATIVE); CANNABINOID URINE SCREEN NEGATIVE (NEGATIVE); METHADONE URINE SCREEN NEGATIVE (NEGATIVE); OPIATES URINE SCREEN NEGATIVE (NEGATIVE); PHENCYCLIDINE URINE SCREEN NEGATIVE (NEGATIVE)
[2019-01-06 20:05] VITALS: BP 125/86
== END 2019-01-06 20:09 | disposition home or self-care (01) ==
LOC: ER 15:42
DX: R10.9 Unspecified abdominal pain (principal); R11.10 Vomiting, unspecified; K08.89 Other specified disorders of teeth and supporting structures; F15.10 Other stimulant abuse, uncomplicated; F41.9 Anxiety disorder, unspecified; F32.9 Major depressive disorder, single episode, unspecified; I10 Essential (primary) hypertension; F20.9 Schizophrenia, unspecified; Z98.890 Other specified postprocedural states; Z79.899 Other long term (current) drug therapy
CPT/HCPCS: 36415; 76705; 80053; 80305; 81003; 81025; 83690; 84703; 85025; 85610; 96374; 96375; 99284; J2405; J3490; J7030

== ENCOUNTER 2019-01-12 18:56 | Emergency (ER) | payer MEDICAID ==
[~2019-01-12] VITALS: Ht 162.6 cm; Wt 104.0 kg
[2019-01-12] MEDS ORDERED: IBUPROFEN 600MG TABLET PO ONE (21:15)
[2019-01-12 22:00] VITALS: BP 132/83
== END 2019-01-12 22:03 | disposition home or self-care (01) ==
LOC: ER 18:56
DX: D17.39 Benign lipomatous neoplasm of skin and subcutaneous tissue of other sites (principal); I10 Essential (primary) hypertension; F41.9 Anxiety disorder, unspecified; F32.9 Major depressive disorder, single episode, unspecified; F20.9 Schizophrenia, unspecified; J45.909 Unspecified asthma, uncomplicated
CPT/HCPCS: 76857; 99284

== ENCOUNTER 2019-02-23 16:06 | Emergency (ER) | payer MEDICAID, OTHER ==
[~2019-02-23] VITALS: Ht 160 cm; Wt 102.0 kg
[2019-02-23] MEDS ORDERED: SODIUM CHLORIDE 0.9% 1,000 ML IV ONE (17:42)
[2019-02-23] MEDS ORDERED: MORPHINE SULFATE 4 MG/ML CPJ (NOT FOR IM USE) IV STA (17:42)
[2019-02-23] MEDS ORDERED: ONDANSETRON HCL 4MG/2ML INJ IV STA (17:42)
[2019-02-23] MEDS ORDERED: FAMOTIDINE 20MG/2ML VIAL IV ONE (17:45)
[2019-02-23] MEDS ORDERED: MAGNESIUM/ALUMINUM HYDROXIDE/SIMETHICONE 30ML UDC PO ONE (17:45)
[2019-02-23 18:09] LABS: BASOPHILS % 0.4 % (0.0-2.0); EOSINOPHILS % 2.9 % (0.0-5.0); HEMATOCRIT. 42.9 % (36.0-48.0); HEMOGLOBIN. 14.4 g/dL (12.0-16.0); LYMPHOCYTES % 38.1 % (20.0-50.0); MEAN CORPUSCULAR HEMOGLOBIN 27.8 pg (28.0-32.0); MEAN CORPUSCULAR VOLUME 82.7 fL (81.0-99.0); MEAN PLATELET VOLUME 8.5 fl (7.4-10.4); MONOCYTES % 6.7 % (2.0-8.0); NEUTROPHILS % 51.9 % (40.0-76.0); PLATELET 273 x1000/uL (130-400); RED BLOOD CELL COUNT 5.18 mill/uL (4.2-5.4)
[2019-02-23 18:13] LABS: CHLORIDE 109 mEq/L (98-107)
[2019-02-23 18:14] LABS: HCG SCREEN NEGATIVE
[2019-02-23] MEDS ORDERED: ACETAMINOPHEN 325MG TABLET PO ONE (21:00)
[2019-02-23] MEDS ORDERED: ONDANSETRON HCL 4MG/2ML INJ IV ONE (21:45)
[2019-02-23 21:55] VITALS: BP 125/71
== END 2019-02-23 22:05 | disposition home or self-care (01) ==
LOC: ER 16:06
DX: K29.70 Gastritis, unspecified, without bleeding (principal); R11.10 Vomiting, unspecified; I10 Essential (primary) hypertension; J45.909 Unspecified asthma, uncomplicated; F41.9 Anxiety disorder, unspecified; F32.9 Major depressive disorder, single episode, unspecified; Z98.84 Bariatric surgery status
CPT/HCPCS: 36415; 71045; 76705; 80053; 83690; 84484; 84703; 85025; 96361; 96374; 96375; 96376; 99284; J2270; J2405; J3490; J7030

== ENCOUNTER 2019-03-09 18:37 | Emergency (ER) | payer OTHER ==
[~2019-03-09] VITALS: Ht 160 cm; Wt 96.0 kg
[2019-03-09] MEDS ORDERED: TRAMADOL 50MG TABLET PO ONE (20:30)
[2019-03-09] MEDS ORDERED: KETOROLAC 30MG/ML VIAL IV ONE (20:30)
[2019-03-09 22:48] VITALS: BP 129/68
== END 2019-03-09 22:50 | disposition home or self-care (01) ==
LOC: ER 18:37
DX: R07.89 Other chest pain (principal); F41.9 Anxiety disorder, unspecified; F20.9 Schizophrenia, unspecified; F32.9 Major depressive disorder, single episode, unspecified; I10 Essential (primary) hypertension; J45.909 Unspecified asthma, uncomplicated
CPT/HCPCS: 36415; 84484; 93005; 96374; 99284; J1885

== ENCOUNTER 2019-03-25 07:17 | Emergency (ER) | payer OTHER ==
[~2019-03-25] VITALS: Ht 160 cm; Wt 95.0 kg
[2019-03-25] MEDS ORDERED: IBUPROFEN 800MG TABLET PO ONE (08:45)
[2019-03-25 09:41] VITALS: BP 117/75
== END 2019-03-25 09:45 | disposition home or self-care (01) ==
LOC: ER 07:17
DX: M79.671 Pain in right foot (principal); B37.2 Candidiasis of skin and nail; J45.909 Unspecified asthma, uncomplicated; I10 Essential (primary) hypertension; F41.9 Anxiety disorder, unspecified; F32.9 Major depressive disorder, single episode, unspecified; F20.9 Schizophrenia, unspecified
CPT/HCPCS: 73630; 99283

== ENCOUNTER 2019-04-16 18:36 | Emergency (ER) | payer OTHER ==
[~2019-04-16] VITALS: Ht 160 cm; Wt 90.0 kg
[2019-04-16 18:48] VITALS: BP 136/85
== END 2019-04-16 19:49 | disposition left against medical advice (07) ==
LOC: ER 18:36
DX: Z53.21 Procedure and treatment not carried out due to patient leaving prior to being seen by health care provider (principal); I10 Essential (primary) hypertension; F32.9 Major depressive disorder, single episode, unspecified; J45.909 Unspecified asthma, uncomplicated; F41.9 Anxiety disorder, unspecified; F20.9 Schizophrenia, unspecified

== ENCOUNTER 2019-04-30 09:59 | Emergency (ER) | payer MEDICAID, OTHER ==
[~2019-04-30] VITALS: Ht 160 cm; Wt 90.0 kg
[2019-04-30] MEDS ORDERED: ALBUTEROL (0.5%) 2.5MG/0.5ML NEB HHN ONE (11:30)
[2019-04-30] MEDS ORDERED: KETOROLAC 60MG/2ML VIAL IM ONE (11:30)
[2019-04-30 11:51] VITALS: BP 139/89
== END 2019-04-30 12:45 | disposition home or self-care (01) ==
LOC: ER 09:59
DX: J11.1 Influenza due to unidentified influenza virus with other respiratory manifestations (principal); J45.909 Unspecified asthma, uncomplicated
CPT/HCPCS: 71045; 94640; 96372; 99283; J1885; J7611; Z7610

== ENCOUNTER 2019-05-04 09:04 | Emergency (ER) | payer MEDICAID, OTHER ==
[~2019-05-04] VITALS: Ht 160 cm; Wt 90.0 kg
[2019-05-04 09:52] VITALS: BP 137/87
[2019-05-04] MEDS ORDERED: ACETAMINOPHEN WITH CODEINE 300/30MG TABLET PO ONE (10:00)
== END 2019-05-04 10:16 | disposition home or self-care (01) ==
LOC: ER 09:04
DX: L02.31 Cutaneous abscess of buttock (principal); J45.909 Unspecified asthma, uncomplicated
CPT/HCPCS: 99283

== ENCOUNTER 2019-05-15 16:50 | Emergency (ER) | payer OTHER ==
[~2019-05-15] VITALS: Ht 157.5 cm; Wt 100.0 kg
[2019-05-15 18:26] VITALS: BP 159/89
[2019-05-15] MEDS ORDERED: KETOROLAC 60MG/2ML VIAL IM ONE (19:15)
[2019-05-15] MEDS ORDERED: METOCLOPRAMIDE HCL 10MG/2ML VIAL IM ONE (19:15)
[2019-05-15 19:26] LABS: BASOPHILS % 0.6 % (0.0-2.0); EOSINOPHILS % 3.5 % (0.0-5.0); HEMATOCRIT. 39.3 % (36.0-48.0); HEMOGLOBIN. 13.2 g/dL (12.0-16.0); LYMPHOCYTES % 35.9 % (20.0-50.0); MEAN CORPUSCULAR HEMOGLOBIN 28.2 pg (28.0-32.0); MEAN CORPUSCULAR VOLUME 83.8 fL (81.0-99.0); MEAN PLATELET VOLUME 8.1 fl (7.4-10.4); MONOCYTES % 6.1 % (2.0-8.0); NEUTROPHILS % 53.9 % (40.0-76.0); PLATELET 268 x1000/uL (130-400); RED BLOOD CELL COUNT 4.69 mill/uL (4.2-5.4); RED CELL DISTRIBUTION WIDTH 15.2 % (11.6-14.6)
[2019-05-15 19:27] LABS: CHLORIDE 114 mEq/L (98-107)
[2019-05-15 21:01] LABS: CLARITY URINE CLEAR (CLEAR); COLOR URINE YELLOW (YELLOW); KETONES URINE TRACE (NEGATIVE); LEUKOCYTE ESTERASE URINE NEGATIVE (NEGATIVE); NITRITE URINE NEGATIVE (NEGATIVE); OCCULT BLOOD URINE NEGATIVE (NEGATIVE); PH URINE 5.5 (4.5-8.0); PROTEIN URINE NEGATIVE (NEGATIVE); SPECIFIC GRAVITY URINE 1.034 (1.005-1.030); UROBILINOGEN URINE 0.2 E.U./dL (0.2-1.0)
== END 2019-05-15 21:51 | disposition home or self-care (01) ==
LOC: ER 16:50
DX: G43.909 Migraine, unspecified, not intractable, without status migrainosus (principal); G44.89 Other headache syndrome; J45.909 Unspecified asthma, uncomplicated; H53.149 Visual discomfort, unspecified; F31.9 Bipolar disorder, unspecified; F20.9 Schizophrenia, unspecified; Z98.890 Other specified postprocedural states; Z79.899 Other long term (current) drug therapy
CPT/HCPCS: 36415; 80053; 81003; 81025; 85025; 93005; 96372; 99284; J1885; J2765

== ENCOUNTER 2019-07-21 14:12 | Emergency (ER) | payer MEDICAID, OTHER ==
[~2019-07-21] VITALS: Ht 160 cm; Wt 87.0 kg
[2019-07-21 14:24] VITALS: BP 143/88
[2019-07-21] MEDS ORDERED: LIDOCAINE HCL/EPINEPHRINE 1%-EPI 1:100,000 20 ML VIAL INFIL SCH (15:45)
[2019-07-21] MEDS ORDERED: LIDOCAINE 1%/EPI 1:100,000 10 ML VIAL IJ ONE (15:45)
[2019-07-21] MEDS ORDERED: BACITRACIN ZINC OINT UDPKT TOP ONE (15:45)
[2019-07-21] MEDS ORDERED: KETOROLAC 60MG/2ML VIAL IM ONE (15:45)
== END 2019-07-21 17:21 | disposition home or self-care (01) ==
LOC: ER 14:12
DX: L02.31 Cutaneous abscess of buttock (principal); L72.3 Sebaceous cyst; J45.909 Unspecified asthma, uncomplicated; F31.9 Bipolar disorder, unspecified; F20.9 Schizophrenia, unspecified; Z79.899 Other long term (current) drug therapy
CPT/HCPCS: 10060; 96372; 99283; J1885; J3490; Z7610

== ENCOUNTER 2019-07-23 08:08 | Emergency (ER) | payer MEDICAID, OTHER ==
[~2019-07-23] VITALS: Ht 160 cm; Wt 87.0 kg
[2019-07-23 08:26] VITALS: BP 132/87
== END 2019-07-23 12:50 | disposition home or self-care (01) ==
LOC: ER 08:08
DX: Z48.00 Encounter for change or removal of nonsurgical wound dressing (principal); J45.909 Unspecified asthma, uncomplicated
CPT/HCPCS: 99281

== ENCOUNTER 2019-07-25 10:42 | Emergency (ER) | payer OTHER ==
[~2019-07-25] VITALS: Ht 160 cm; Wt 86.0 kg
[2019-07-25] MEDS ORDERED: HYDROCODONE/ACETAMINOPHEN 5/325MG TABLET PO ONE (12:45)
[2019-07-25 12:59] VITALS: BP 110/79
== END 2019-07-25 13:04 | disposition home or self-care (01) ==
LOC: ER 10:55
DX: Z48.00 Encounter for change or removal of nonsurgical wound dressing (principal); K61.1 Rectal abscess; J45.909 Unspecified asthma, uncomplicated; F32.9 Major depressive disorder, single episode, unspecified; F20.9 Schizophrenia, unspecified; Z98.84 Bariatric surgery status
CPT/HCPCS: 99283

== ENCOUNTER 2019-07-30 18:00 | Inpatient (IN) | payer OTHER ==
[~2019-07-30] VITALS: Ht 160 cm; Wt 109.3 kg
[2019-07-30] MEDS ORDERED: SODIUM CHLORIDE 0.9% 1,000 ML IV ONE (20:04)
[2019-07-30] MEDS ORDERED: ONDANSETRON HCL 4MG/2ML INJ IV ONE (20:15)
[2019-07-30 20:36] LABS: BASOPHILS % 0.4 % (0.0-2.0); EOSINOPHILS % 2.9 % (0.0-5.0); HEMATOCRIT. 40.7 % (36.0-48.0); HEMOGLOBIN. 13.7 g/dL (12.0-16.0); LYMPHOCYTES % 25.3 % (20.0-50.0); MEAN CORPUSCULAR HEMOGLOBIN 28.3 pg (28.0-32.0); MEAN CORPUSCULAR VOLUME 84.1 fL (81.0-99.0); MEAN PLATELET VOLUME 7.8 fl (7.4-10.4); MONOCYTES % 6.6 % (2.0-8.0); NEUTROPHILS % 64.8 % (40.0-76.0); PLATELET 244 x1000/uL (130-400); RED BLOOD CELL COUNT 4.84 mill/uL (4.2-5.4); RED CELL DISTRIBUTION WIDTH 14.4 % (11.6-14.6)
[2019-07-30 20:40] LABS: CHLORIDE 110 mEq/L (98-107)
[2019-07-30 20:48] LABS: HCG SCREEN NEGATIVE
[2019-07-30] MEDS ORDERED: LIDOCAINE HCL/EPINEPHRINE 1%-EPI 1:100,000 20 ML VIAL INFIL SCH (22:29)
[2019-07-30] MEDS ORDERED: LIDOCAINE 1%/EPI 1:100,000 10 ML VIAL IJ ONE (22:30)
[2019-07-31 01:52] LABS: HEMATOCRIT 34.2 % (36.0-48.0); HEMOGLOBIN 11.5 g/dL (12.0-16.0)
[2019-07-31] MEDS ORDERED: SODIUM CHLORIDE 0.9% 1,000 ML IV SCH (03:00)
[2019-07-31 09:42] LABS: BASOPHILS % 0.3 % (0.0-2.0); EOSINOPHILS % 1.9 % (0.0-5.0); HEMATOCRIT. 28.9 % (36.0-48.0); LYMPHOCYTES % 18.2 % (20.0-50.0); MEAN CORPUSCULAR HEMOGLOBIN 29.3 pg (28.0-32.0); MEAN CORPUSCULAR VOLUME 84.6 fL (81.0-99.0); MONOCYTES % 2.9 % (2.0-8.0); NEUTROPHILS % 76.7 % (40.0-76.0); PLATELET 209 x1000/uL (130-400); RED BLOOD CELL COUNT 3.41 mill/uL (4.2-5.4)
[2019-07-31 09:47] LABS: CHLORIDE 113 mEq/L (98-107)
[2019-07-31] MEDS ORDERED: HYDROCODONE/ACETAMINOPHEN 5/325MG TABLET PO PRN (10:15)
[2019-07-31] MEDS ORDERED: PIPERACILLIN/TAZ 3.375G PREMIX 50 ML IV NR ×2 (11:15→18:30)
[2019-07-31] MEDS: ACETAMINOPHEN 325MG TABLET PO PRN (11:46)
[2019-07-31] MEDS ORDERED: ONDANSETRON 4MG/5ML UDC PO NR (15:45)
[2019-07-31] MEDS ORDERED: ONDANSETRON HCL 4MG/2ML INJ IV PRN (17:45)
[2019-07-31] MEDS ORDERED: PIPERACILLIN/TAZOBACTAM 3.375 G in DEXT 5% WATER 100 ML IV NR (18:00)
[2019-07-31 19:30] VITALS: BP 99/49
[2019-07-31] MEDS ORDERED: VANCOMYCIN 1500MG in DEXTROSE 5% WATER 250ML IV NR (22:00)
[2019-07-31 23:00] VITALS: BP 99/49
[2019-08-01] VITALS: BP 93/41
[2019-08-01] MEDS: ACETAMINOPHEN 325MG TABLET PO PRN ×2 (00:50→12:30)
[2019-08-01] MEDS: PIPERACILLIN/TAZOBACTAM 3.375 G in DEXT 5% WATER 100 ML IV SCH ×3 (01:06→12:30)
[2019-08-01 04:00] VITALS: BP 98/41
[2019-08-01] MEDS ORDERED: VANCOMYCIN 750 MG PREMIX 150 ML IV SCH ×2 (06:00→09:00)
[2019-08-01 08:00] VITALS: BP 96/50
[2019-08-01 08:22] LABS: CHLORIDE 111 mEq/L (98-107)
[2019-08-01 08:27] LABS: BASOPHILS % 0.3 % (0.0-2.0); HEMATOCRIT. 27.1 % (36.0-48.0); HEMOGLOBIN. 9.2 g/dL (12.0-16.0); LYMPHOCYTES % 40.5 % (20.0-50.0); MEAN CORPUSCULAR HEMOGLOBIN 28.5 pg (28.0-32.0); MEAN CORPUSCULAR VOLUME 84.1 fL (81.0-99.0); MEAN PLATELET VOLUME 7.7 fl (7.4-10.4); MONOCYTES % 10.3 % (2.0-8.0); NEUTROPHILS % 44.9 % (40.0-76.0); PLATELET 203 x1000/uL (130-400); RED BLOOD CELL COUNT 3.22 mill/uL (4.2-5.4); RED CELL DISTRIBUTION WIDTH 13.9 % (11.6-14.6)
[2019-08-01 12:00] VITALS: BP 99/54
[2019-08-01] MEDS ORDERED: POTASSIUM CHLORIDE 20MEQ TABLET SR PO NR (12:45)
[2019-08-01 14:13] VITALS: BP 99/54
[2019-08-01] MEDS ORDERED: PIPERACILLIN/TAZOBACTAM 3.375 G in DEXT 5% WATER 100 ML IV SCH (18:00)
[2019-08-01] MEDS ORDERED: VANCOMYCIN 1500MG in DEXTROSE 5% WATER 250ML IV SCH (21:00)
== END 2019-08-01 14:30 | disposition home or self-care (01) | DRG 383 ==
LOC: ER 18:00 → ENRESERV 07-31 17:51 → 5WST 07-31 19:20
PROVIDERS: ADMIT Internal Medicine; ATTEND Internal Medicine
PROC: 0H98XZZ Drainage of Buttock Skin, External Approach (ICD-10-PCS; principal; 2019-07-30)
PROC: 2Y43X5Z Packing of Anorectal Region using Packing Material (ICD-10-PCS; 2019-07-30)
DX: L05.01 Pilonidal cyst with abscess (principal); E87.8 Other disorders of electrolyte and fluid balance, not elsewhere classified; J45.909 Unspecified asthma, uncomplicated; D64.9 Anemia, unspecified; Z98.84 Bariatric surgery status
CPT/HCPCS: 36415; 80048; 80053; 84703; 85014; 85018; 85025; 86850; 86900; 87070; 87077; 87186; 99285; J2405; J2543; J3370; J3490; J7030; J7060; A4315

== ENCOUNTER 2019-10-31 22:51 | Emergency (ER) | payer MEDICAID, OTHER ==
[~2019-10-31] VITALS: Ht 160 cm; Wt 84.0 kg
[2019-10-31 23:02] VITALS: BP_SYST 118
[2019-11-01 00:22] LABS: BASOPHILS % 0.9 % (0.0-2.0); EOSINOPHILS % 5.3 % (0.0-5.0); HEMATOCRIT. 32.3 % (36.0-48.0); HEMOGLOBIN. 10.1 g/dL (12.0-16.0); LYMPHOCYTES % 30.1 % (20.0-50.0); MEAN CORPUSCULAR HEMOGLOBIN 20.4 pg (28.0-32.0); MEAN CORPUSCULAR VOLUME 65.3 fL (81.0-99.0); MEAN PLATELET VOLUME 7.4 fl (7.4-10.4); MONOCYTES % 8.6 % (2.0-8.0); NEUTROPHILS % 55.1 % (40.0-76.0); PLATELET 414 x1000/uL (130-400); RED BLOOD CELL COUNT 4.94 mill/uL (4.2-5.4); RED CELL DISTRIBUTION WIDTH 18.8 % (11.6-14.6)
[2019-11-01 00:27] LABS: CLARITY URINE CLEAR (CLEAR); COLOR URINE YELLOW (YELLOW); KETONES URINE TRACE (NEGATIVE); LEUKOCYTE ESTERASE URINE NEGATIVE (NEGATIVE); NITRITE URINE NEGATIVE (NEGATIVE); OCCULT BLOOD URINE NEGATIVE (NEGATIVE); PH URINE 5.5 (4.5-8.0); PROTEIN URINE NEGATIVE (NEGATIVE); SPECIFIC GRAVITY URINE 1.032 (1.005-1.030)
[2019-11-01 00:28] LABS: CHLORIDE 110 mEq/L (98-107)
[2019-11-01] MEDS ORDERED: ACETAMINOPHEN 325MG TABLET PO ONE (00:45)
[2019-11-01 02:08] LABS: PLATELET ESTIMATE SLIGHTLY INCREASED
== END 2019-11-01 01:36 | disposition home or self-care (01) ==
LOC: ER 22:51
DX: R10.30 Lower abdominal pain, unspecified (principal); D64.9 Anemia, unspecified; J45.909 Unspecified asthma, uncomplicated; F20.9 Schizophrenia, unspecified; R00.1 Bradycardia, unspecified; F31.9 Bipolar disorder, unspecified; Z79.899 Other long term (current) drug therapy
CPT/HCPCS: 36415; 80053; 81003; 81025; 85025; 99283

== ENCOUNTER 2019-11-26 18:11 | Emergency (ER) | payer MEDICAID ==
[~2019-11-26] VITALS: Ht 160 cm; Wt 83.0 kg
[2019-11-26 19:32] LABS: BASOPHILS % 0.5 % (0.0-2.0); EOSINOPHILS % 4.4 % (0.0-5.0); HEMATOCRIT. 29.8 % (36.0-48.0); HEMOGLOBIN. 9.3 g/dL (12.0-16.0); MEAN CORPUSCULAR HEMOGLOBIN 19.4 pg (28.0-32.0); MEAN CORPUSCULAR VOLUME 62.4 fL (81.0-99.0); MEAN PLATELET VOLUME 7.3 fl (7.4-10.4); NEUTROPHILS % 57.1 % (40.0-76.0); PLATELET 353 x1000/uL (130-400); RED BLOOD CELL COUNT 4.78 mill/uL (4.2-5.4); RED CELL DISTRIBUTION WIDTH 19.8 % (11.6-14.6)
[2019-11-26 19:34] LABS: CHLORIDE 112 mEq/L (98-107)
[2019-11-26 19:56] LABS: PLATELET ESTIMATE NORMAL
[2019-11-26 22:00] VITALS: BP 131/80
== END 2019-11-26 22:36 | disposition home or self-care (01) ==
LOC: ER 18:11
DX: D64.9 Anemia, unspecified (principal); F20.9 Schizophrenia, unspecified; F32.9 Major depressive disorder, single episode, unspecified; G43.909 Migraine, unspecified, not intractable, without status migrainosus; J45.909 Unspecified asthma, uncomplicated; Z98.84 Bariatric surgery status
CPT/HCPCS: 36415; 80053; 83880; 84484; 85025; 86850; 86900; 93005; 99284

== ENCOUNTER → 2020-01-04 | Outpatient (CLI) | payer MEDICAID ==
[~2020-01-04] MED LIST changes: +BREX1TAB MT; +OXCA600T5 PO
== END | disposition home or self-care (01) ==
LOC: LAB 11:50
PROVIDERS: ATTEND Surgery
DX: Z01.818 Encounter for other preprocedural examination (principal); Z11.59 Encounter for screening for other viral diseases
CPT/HCPCS: U0003-CS

== ENCOUNTER 2020-01-07 05:34 | Day surgery (SDC) | payer MEDICAID ==
[~2020-01-07] VITALS: Ht 160 cm; Wt 83.5 kg
[~2020-01-07 05:34] MED LIST changes: -BREX1TAB MT; -OXCA600T5 PO
[2020-01-07 06:48] LABS: UCG SCREEN NEGATIVE
[2020-01-07] MEDS ORDERED: LACTATED RINGERS 1,000 ML IV SCH (07:00)
[2020-01-07] MEDS ORDERED: LIDOCAINE HCL 1% 20ML VIAL (Pyxis) INJ ONE (07:11)
[2020-01-07] MEDS ORDERED: BUPIVACAINE HCL 0.5% (5MG/ML) 50ML ONE (07:11)
[2020-01-07] MEDS ORDERED: BACITRACIN 50,000 UNITS/VIAL ONE (07:11)
[2020-01-07] MEDS ORDERED: PROPOFOL 200MG/20ML VIAL IV ONE (07:21)
[2020-01-07] MEDS ORDERED: ROCURONIUM BROMIDE 10MG/ML VIAL 5ML IV ONE (07:21)
[2020-01-07] MEDS ORDERED: FENTANYL CITRATE/PF 50MCG/ML 2ML VIAL ONE (07:21)
[2020-01-07] MEDS ORDERED: NEOSTIGMINE METHYLSULFATE 1MG/ML 10 ML VIAL ONE (07:21)
[2020-01-07] MEDS ORDERED: MIDAZOLAM HCL 2 MG/2 ML VIAL ONE (07:22)
[2020-01-07] MEDS ORDERED: GLYCOPYRROLATE 0.2 MG/ML 2ML VIAL ONE (07:22)
[2020-01-07] MEDS ORDERED: ONDANSETRON HCL 4MG/2ML INJ ONE (07:23)
[2020-01-07] MEDS ORDERED: DEXAMETHASONE 4MG/ML 1ML VIAL ONE (07:23)
[2020-01-07] MEDS ORDERED: SKIN ADHESIVE 0.7 GM EA TOP ONE (07:59)
[2020-01-07] MEDS ORDERED: HYDROMORPHONE HCL/PF 2MG/ML CPJ IV PRN (08:45)
[2020-01-07] MEDS ORDERED: LABETALOL 5MG/ML SYR 20 MG/4 ML SYRINGE IV PRN (08:45)
[2020-01-07] MEDS ORDERED: MEPERIDINE HCL/PF 25MG/ML CPJ IV PRN (08:45)
[2020-01-07 09:29] VITALS: BP 110/65
[2020-01-07] MEDS: ONDANSETRON HCL 4MG/2ML INJ IV PRN ×2 (09:30→11:27)
[2020-01-07] MEDS ORDERED: OXCA600T5 PO (09:57)
[2020-01-07] MEDS ORDERED: BREX1TAB MT (09:59)
== END 2020-01-07 11:40 | disposition home or self-care (01) ==
LOC: OR 05:34
PROVIDERS: ATTEND Surgery
DX: L05.91 Pilonidal cyst without abscess (principal); Z79.899 Other long term (current) drug therapy; Z98.890 Other specified postprocedural states; Z82.49 Family history of ischemic heart disease and other diseases of the circulatory system; Z83.3 Family history of diabetes mellitus
CPT/HCPCS: 11770; 81025; 88304; J1100; J1170; J2250; J2405; J2704; J2710; J3010; J3490

== ENCOUNTER 2020-03-22 22:19 | Emergency (ER) | payer MEDICAID ==
[~2020-03-22] VITALS: Ht 160 cm; Wt 78.0 kg
[~2020-03-22 22:19] MED LIST changes: +BREX1TAB MT; -CONGENTIN; +OXCA600T5 PO; -[UNRECOGNIZED DRUG - OTHER]
[2020-03-22 22:34] VITALS: BP 137/91
== END 2020-03-22 23:07 | disposition home or self-care (01) ==
LOC: ER 22:19
DX: R06.02 Shortness of breath (principal); R05 Cough; J45.909 Unspecified asthma, uncomplicated; Z20.828 Contact with and (suspected) exposure to other viral communicable diseases; Z79.899 Other long term (current) drug therapy
CPT/HCPCS: 87635; 99283; C9803

== ENCOUNTER 2020-03-24 22:02 | Emergency (ER) | payer MEDICAID ==
[~2020-03-24] VITALS: Ht 160 cm; Wt 78.2 kg
[2020-03-24 23:14] VITALS: BP 119/76
== END 2020-03-25 00:20 | disposition left against medical advice (07) ==
LOC: ER 22:02
DX: Z53.21 Procedure and treatment not carried out due to patient leaving prior to being seen by health care provider (principal)

== ENCOUNTER 2020-03-25 10:12 | Emergency (ER) | payer MEDICAID ==
[~2020-03-25] VITALS: Ht 160 cm; Wt 78.0 kg
[2020-03-25] MEDS ORDERED: SODIUM CHLORIDE 0.9% 1,000 ML IV ONE (11:14)
[2020-03-25] MEDS ORDERED: ONDANSETRON HCL 4MG/2ML INJ IV STA (11:14)
[2020-03-25] MEDS ORDERED: MORPHINE SULFATE 4 MG/ML CPJ (NOT FOR IM USE) IV STA (11:14)
[2020-03-25] MEDS ORDERED: PANTOPRAZOLE SODIUM 40 MG/VIAL IV STA (11:14)
[2020-03-25 11:21] LABS: BASOPHILS % 0.4 % (0.0-2.0); EOSINOPHILS % 1.7 % (0.0-5.0); HEMOGLOBIN. 12.1 g/dL (12.0-16.0); LYMPHOCYTES % 37.2 % (20.0-50.0); MEAN CORPUSCULAR HEMOGLOBIN 24.1 pg (28.0-32.0); MEAN CORPUSCULAR VOLUME 73.5 fL (81.0-99.0); MEAN PLATELET VOLUME 8.2 fl (7.4-10.4); MONOCYTES % 8.3 % (2.0-8.0); NEUTROPHILS % 52.4 % (40.0-76.0); PLATELET 320 x1000/uL (130-400); RED BLOOD CELL COUNT 5.04 mill/uL (4.2-5.4); RED CELL DISTRIBUTION WIDTH 19.4 % (11.6-14.6)
[2020-03-25 11:28] LABS: CHLORIDE 110 mEq/L (98-107)
[2020-03-25 11:31] LABS: HCG SCREEN NEGATIVE
[2020-03-25 11:32] LABS: PROTHROMBIN TIME 10.9 sec (9.6-11.0)
[2020-03-25 13:30] VITALS: BP 117/62
== END 2020-03-25 13:35 | disposition home or self-care (01) ==
LOC: ER 10:12
DX: K29.70 Gastritis, unspecified, without bleeding (principal); J45.909 Unspecified asthma, uncomplicated; F31.9 Bipolar disorder, unspecified; F20.9 Schizophrenia, unspecified; R00.1 Bradycardia, unspecified; Z79.899 Other long term (current) drug therapy
CPT/HCPCS: 36415; 71045; 80053; 81025; 83690; 84703; 85025; 85610; 93005; 96361; 96374; 96375; 99285; C9113; J2270; J2405; J7030

== ENCOUNTER 2020-06-06 12:39 | Emergency (ER) | payer MEDICAID ==
[~2020-06-06] VITALS: Ht 160 cm; Wt 76.0 kg
[2020-06-06] MEDS ORDERED: SODIUM CHLORIDE 0.9% 1,000 ML IV ONE (15:15)
[2020-06-06 16:14] LABS: BASOPHILS % 0.5 % (0.0-2.0); EOSINOPHILS % 3.3 % (0.0-5.0); HEMATOCRIT. 32.4 % (36.0-48.0); HEMOGLOBIN. 10.9 g/dL (12.0-16.0); LYMPHOCYTES % 25.9 % (20.0-50.0); MEAN CORPUSCULAR HEMOGLOBIN 26.1 pg (28.0-32.0); MEAN CORPUSCULAR VOLUME 77.3 fL (81.0-99.0); MEAN PLATELET VOLUME 7.6 fl (7.4-10.4); MONOCYTES % 8.7 % (2.0-8.0); NEUTROPHILS % 61.6 % (40.0-76.0); PLATELET 368 x1000/uL (130-400); RED BLOOD CELL COUNT 4.19 mill/uL (4.2-5.4); RED CELL DISTRIBUTION WIDTH 16.8 % (11.6-14.6)
[2020-06-06 16:21] LABS: CHLORIDE 113 mEq/L (98-107)
[2020-06-06 16:23] LABS: PROTHROMBIN TIME 10.5 sec (9.6-11.0)
[2020-06-06 16:31] LABS: CLARITY URINE CLOUDY (CLEAR); KETONES URINE NEGATIVE (NEGATIVE); LEUKOCYTE ESTERASE URINE 1+ (NEGATIVE); NITRITE URINE NEGATIVE (NEGATIVE); OCCULT BLOOD URINE 3+ (NEGATIVE); PROTEIN URINE TRACE (NEGATIVE); SPECIFIC GRAVITY URINE 1.029 (1.005-1.030)
[2020-06-06 16:34] LABS: B-HCG QUANTITATIVE < 1 mIU/mL (<3)
[2020-06-06 16:34] LABS: COLOR URINE DARK YELLOW (YELLOW)
[2020-06-06 16:38] LABS: HCG SCREEN NEGATIVE
[2020-06-06 16:50] LABS: *AMPHETAMINES SCREEN URINE NEGATIVE (NEGATIVE); *BARBITURATES SCREEN URINE NEGATIVE (NEGATIVE); *BENZODIAZEPINES SCREEN URINE NEGATIVE (NEGATIVE)
[2020-06-06 16:51] LABS: *COCAINE SCREEN URINE NEGATIVE (NEGATIVE); CANNABINOID URINE SCREEN NEGATIVE (NEGATIVE); METHADONE URINE SCREEN NEGATIVE (NEGATIVE); OPIATES URINE SCREEN NEGATIVE (NEGATIVE); PHENCYCLIDINE URINE SCREEN NEGATIVE (NEGATIVE)
[2020-06-06 18:28] VITALS: BP 129/85
== END 2020-06-06 18:29 | disposition home or self-care (01) ==
LOC: ER 12:39
DX: N39.0 Urinary tract infection, site not specified (principal); D64.9 Anemia, unspecified; J45.909 Unspecified asthma, uncomplicated; F20.9 Schizophrenia, unspecified
CPT/HCPCS: 36415; 76830; 76856; 80053; 80305; 81003; 84702; 84703; 85025; 85610; 86850; 86900; 86901; 93005; 99285; J7030

== ENCOUNTER 2020-06-28 20:32 | Emergency (ER) | payer MEDICAID ==
[~2020-06-28] VITALS: Ht 160 cm; Wt 73.0 kg
[2020-06-28] MEDS ORDERED: KETOROLAC 60MG/2ML VIAL IM STA (21:04)
[2020-06-28 23:06] VITALS: BP 115/80
== END 2020-06-28 23:07 | disposition home or self-care (01) ==
LOC: ER 20:32
DX: S20.212A Contusion of left front wall of thorax, initial encounter (principal); J45.909 Unspecified asthma, uncomplicated; Z79.899 Other long term (current) drug therapy; Z98.890 Other specified postprocedural states; X58.XXXA Exposure to other specified factors, initial encounter; Y93.89 Activity, other specified; Y92.89 Other specified places as the place of occurrence of the external cause; Y99.8 Other external cause status
CPT/HCPCS: 71101; 81025; 96372; 99283; J1885

== ENCOUNTER 2020-07-11 13:05 | Emergency (ER) | payer MEDICAID ==
[~2020-07-11] VITALS: Ht 160 cm; Wt 75.0 kg
[2020-07-11 14:42] VITALS: BP 120/70
== END 2020-07-11 14:43 | disposition home or self-care (01) ==
LOC: ER 13:05
DX: U07.1 COVID-19 (principal); I10 Essential (primary) hypertension; J45.909 Unspecified asthma, uncomplicated; F41.9 Anxiety disorder, unspecified; Z98.84 Bariatric surgery status
CPT/HCPCS: 71045; 99284; C9803; U0003

== ENCOUNTER 2020-08-26 16:28 | Emergency (ER) | payer MEDICAID, OTHER ==
[~2020-08-26] VITALS: Ht 160 cm; Wt 72.0 kg
[2020-08-26 17:08] VITALS: BP 131/83
== END 2020-08-26 18:13 | disposition home or self-care (01) ==
LOC: ER 16:28
DX: I10 Essential (primary) hypertension (principal); R51.9 Headache, unspecified; D64.9 Anemia, unspecified; J45.909 Unspecified asthma, uncomplicated; F31.9 Bipolar disorder, unspecified; F20.9 Schizophrenia, unspecified; R00.1 Bradycardia, unspecified; Z79.899 Other long term (current) drug therapy
CPT/HCPCS: 93005; 99283

== ENCOUNTER 2023-03-28 21:29 | Emergency (ER) | payer MEDICAID ==
[~2023-03-28] VITALS: Ht 160 cm; Wt 113.0 kg
[2023-03-28 21:52] VITALS: BP 122/85; PULSE 99; RESP 18; TEMP 98.7; O2SAT 98
[2023-03-28 22:29] LABS: BASOPHILS % 0.4 % (0.0-2.0); EOSINOPHILS % 2.2 % (0.0-5.0); HEMATOCRIT. 41.6 % (36.0-48.0); HEMOGLOBIN. 14.2 g/dL (12.0-16.0); LYMPHOCYTES % 29.2 % (20.0-50.0); MEAN CORPUSCULAR HEMOGLOBIN 28.5 pg (28.0-32.0); MEAN CORPUSCULAR HGB CONC 34.1 g/dL (31.0-37.0); MEAN CORPUSCULAR VOLUME 83.6 fL (81.0-99.0); MEAN PLATELET VOLUME 7.8 fl (7.4-10.4); MONOCYTES % 7.7 % (2.0-8.0); NEUTROPHILS % 60.5 % (40.0-76.0); PLATELET 318 x1000/uL (130-400); RED BLOOD CELL COUNT 4.97 mill/uL (4.2-5.4); RED CELL DISTRIBUTION WIDTH 13.7 % (11.6-14.6); WHITE BLOOD COUNT 8.7 x1000/uL (4.5-11.0)
[2023-03-28 22:38] LABS: CHLORIDE 114 mEq/L (98-107); INDEX HEMOLYSI 2 (1-3); INDEX ICTERIC 1 (1-4); INDEX LIPEMIC 1 (1-3); POTASSIUM 3.6 mEq/L (3.5-5.1); SODIUM 140 mEq/L (136-145)
[2023-03-28 22:40] LABS: PARTIAL THROMBOPLASTIN TIME 29.9 sec (23.4-31.0); PROTHROMBIN TIME 10.5 sec (9.6-11.0)
[2023-03-28 22:41] LABS: HCG SCREEN NEGATIVE
[2023-03-28 22:44] LABS: ALANINE AMINOTRANSFERASE 19 IU/L (13-61); ALBUMIN 3.3 g/dL (3.4-5.0); ASPARTATE AMINOTRANSFERASE 12 IU/L (15-37); BILIRUBIN TOTAL 0.3 mg/dL (0.1-1.0); CALCIUM 8.2 mg/dL (8.5-10.1); CARBON DIOXIDE 26 mEq/L (21-32); CREATININE 0.8 mg/dL (0.6-1.3); GLUCOSE 101 mg/dL (70-105); PROTEIN TOTAL 6.9 g/dL (6.0-8.3); UREA NITROGEN BLOOD 14 mg/dL (7-21)
[2023-03-28 23:08] LABS: TROPONIN I HIGH SENSITIVITY < 4 ng/L (<54)
[2023-03-28] MEDS ORDERED: ASPIRIN 325MG EC TABLET PO ONE (23:15)
== END 2023-03-29 00:42 | disposition left against medical advice (07) ==
LOC: ER 21:29
DX: R07.89 Other chest pain (principal); F41.9 Anxiety disorder, unspecified; J45.909 Unspecified asthma, uncomplicated; I25.2 Old myocardial infarction; Z90.710 Acquired absence of both cervix and uterus
CPT/HCPCS: 36415; 71045; 80053; 84484; 84703; 85025; 85379; 93005; 99285

== ENCOUNTER 2023-12-18 22:10 | Emergency (ER) | payer MEDICAID ==
[~2023-12-18] VITALS: Ht 160 cm; Wt 111.0 kg
[2023-12-18 23:14] VITALS: O2SAT 99
[2023-12-18 23:42] LABS: BASOPHILS % 0.4 % (0.0-2.0); EOSINOPHILS % 3.6 % (0.0-5.0); HEMATOCRIT. 40.7 % (36.0-48.0); HEMOGLOBIN. 13.9 g/dL (12.0-16.0); LYMPHOCYTES % 27.4 % (20.0-50.0); MEAN CORPUSCULAR HEMOGLOBIN 29.1 pg (28.0-32.0); MEAN CORPUSCULAR HGB CONC 34.1 g/dL (31.0-37.0); MEAN CORPUSCULAR VOLUME 85.3 fL (81.0-99.0); MEAN PLATELET VOLUME 7.8 fl (7.4-10.4); MONOCYTES % 6.5 % (2.0-8.0); NEUTROPHILS % 62.1 % (40.0-76.0); PLATELET 303 x1000/uL (130-400); RED BLOOD CELL COUNT 4.78 mill/uL (4.2-5.4); RED CELL DISTRIBUTION WIDTH 13.9 % (11.6-14.6); WHITE BLOOD COUNT 8.1 x1000/uL (4.5-11.0)
[2023-12-18 23:47] LABS: CHLORIDE 109 mEq/L (98-107); POTASSIUM 3.7 mEq/L (3.5-5.1); SODIUM 141 mEq/L (136-145)
[2023-12-18 23:48] LABS: CALCIUM 8.9 mg/dL (8.7-10.4); CARBON DIOXIDE 27 mEq/L (21-32)
[2023-12-18 23:53] LABS: CREATININE 0.9 mg/dL (0.6-1.0); GLUCOSE 96 mg/dL (70-105); UREA NITROGEN BLOOD 16 mg/dL (9-23)
[2023-12-19] MEDS: KETOROLAC 30MG/ML VIAL IM ONE (00:15)
[2023-12-19 00:34] LABS: HCG SCREEN NEGATIVE
[2023-12-19 00:42] LABS: ALANINE AMINOTRANSFERASE 12 IU/L (10-49); ALBUMIN 4.1 g/dL (3.2-4.8); ASPARTATE AMINOTRANSFERASE 19 IU/L (<34); BILIRUBIN TOTAL 0.2 mg/dL (0.1-1.0); PROTEIN TOTAL 6.8 g/dL (6.0-8.3)
[2023-12-19 01:06] LABS: BILIRUBIN DIRECT < 0.1 mg/dL (<=3.0)
[2023-12-19 01:26] LABS: CLARITY URINE CLEAR (CLEAR); COLOR URINE YELLOW (YELLOW); GLUCOSE URINE NEGATIVE (NEGATIVE); KETONES URINE NEGATIVE (NEGATIVE); LEUKOCYTE ESTERASE URINE NEGATIVE (NEGATIVE); NITRITE URINE NEGATIVE (NEGATIVE); OCCULT BLOOD URINE NEGATIVE (NEGATIVE); PH URINE 5.5 (4.5-8.0); PROTEIN URINE NEGATIVE (NEGATIVE); SPECIFIC GRAVITY URINE 1.038 (1.005-1.030)
[2023-12-19] MEDS ORDERED: IBUP-2029 MT (05:08)
[2023-12-19 06:12] VITALS: BP 140/55; PULSE 86; RESP 14; TEMP 98.3
== END 2023-12-19 06:12 | disposition home or self-care (01) ==
LOC: ER 22:10
DX: R10.30 Lower abdominal pain, unspecified (principal); R19.7 Diarrhea, unspecified; J45.909 Unspecified asthma, uncomplicated; Z90.710 Acquired absence of both cervix and uterus
CPT/HCPCS: 36415; 74176; 76830; 76856; 80048; 80076; 81003; 84703; 85025; 99284

== ENCOUNTER 2024-01-05 21:08 | Emergency (ER) | payer MEDICAID ==
[~2024-01-05] VITALS: Ht 160 cm; Wt 114.0 kg
[~2024-01-05 21:08] MED LIST changes: +IBUP-2029 MT
[2024-01-05 21:14] VITALS: BP 128/81; PULSE 92; RESP 20; TEMP 98.3; O2SAT 98
[2024-01-05 22:40] LABS: BASOPHILS % 0.5 % (0.0-2.0); EOSINOPHILS % 6.1 % (0.0-5.0); HEMATOCRIT. 41.5 % (36.0-48.0); HEMOGLOBIN. 14.1 g/dL (12.0-16.0); LYMPHOCYTES % 24.6 % (20.0-50.0); MEAN CORPUSCULAR HEMOGLOBIN 28.9 pg (28.0-32.0); MEAN PLATELET VOLUME 7.5 fl (7.4-10.4); MONOCYTES % 9.3 % (2.0-8.0); NEUTROPHILS % 59.5 % (40.0-76.0); PLATELET 329 x1000/uL (130-400); RED BLOOD CELL COUNT 4.88 mill/uL (4.2-5.4); RED CELL DISTRIBUTION WIDTH 14.3 % (11.6-14.6); WHITE BLOOD COUNT 9.2 x1000/uL (4.5-11.0)
[2024-01-05 22:46] LABS: CHLORIDE 109 mEq/L (98-107); POTASSIUM 3.5 mEq/L (3.5-5.1); SODIUM 141 mEq/L (136-145)
[2024-01-05 22:47] LABS: CALCIUM 8.6 mg/dL (8.7-10.4); CARBON DIOXIDE 26 mEq/L (21-32)
[2024-01-05 22:52] LABS: CREATININE 0.8 mg/dL (0.6-1.0); GLUCOSE 93 mg/dL (70-105); UREA NITROGEN BLOOD 13 mg/dL (9-23)
[2024-01-05 22:54] LABS: TROPONIN I HIGH SENSITIVITY < 4 ng/L (3.0-34)
[2024-01-06] MEDS ORDERED: BENZ150C8 MT (17:10)
[2024-01-06] MEDS ORDERED: CETI10CA2 MT (17:10)
[2024-01-06] MEDS ORDERED: TUSSL MT (17:10)
== END 2024-01-06 00:02 | disposition left against medical advice (07) ==
LOC: ER 21:08
DX: R06.02 Shortness of breath (principal); Z53.21 Procedure and treatment not carried out due to patient leaving prior to being seen by health care provider
CPT/HCPCS: 36415; 71045; 80048; 84484; 85025

== ENCOUNTER 2024-01-06 15:18 | Emergency (ER) | payer MEDICAID ==
[~2024-01-06] VITALS: Ht 160 cm; Wt 113.4 kg
[2024-01-06 16:21] VITALS: TEMP 98.3; O2SAT 98
[2024-01-06] MEDS ORDERED: BENZ150C8 MT (17:10)
[2024-01-06] MEDS ORDERED: CETI10CA2 MT (17:10)
[2024-01-06] MEDS ORDERED: TUSSL MT (17:10)
[2024-01-06] MEDS: KETOROLAC 30MG/ML VIAL IM ONE (17:15)
[2024-01-06 17:30] VITALS: BP 121/64; PULSE 67; RESP 16
== END 2024-01-06 17:37 | disposition home or self-care (01) ==
LOC: ER 15:18
DX: J06.9 Acute upper respiratory infection, unspecified (principal); F31.9 Bipolar disorder, unspecified; R00.1 Bradycardia, unspecified; F20.9 Schizophrenia, unspecified; J45.909 Unspecified asthma, uncomplicated; Z20.822 Contact with and (suspected) exposure to COVID-19
CPT/HCPCS: 99284; 71045; 87426; 81025; 87804 ×2; 96372; J1885

== ENCOUNTER 2024-02-20 21:19 | Emergency (ER) | payer MEDICAID ==
[~2024-02-20] VITALS: Ht 160 cm; Wt 112.0 kg
[~2024-02-20 21:19] MED LIST changes: +BENZ150C8 MT; +CETI10CA2 MT; +TUSSL MT
[2024-02-20 21:34] VITALS: O2SAT 100
[2024-02-20 21:36] VITALS: TEMP 98.7; O2SAT 100
[2024-02-21 00:03] VITALS: BP 145/96; PULSE 98; RESP 18
[2024-02-21] MEDS: IBUPROFEN 600MG TABLET PO ONE (00:03)
[2024-02-21] MEDS ORDERED: IBUP-2029 MT (00:28)
== END 2024-02-21 01:15 | disposition home or self-care (01) ==
LOC: ER 21:19
DX: S60.211A Contusion of right wrist, initial encounter (principal); J45.909 Unspecified asthma, uncomplicated; F31.9 Bipolar disorder, unspecified; F20.9 Schizophrenia, unspecified; R00.1 Bradycardia, unspecified; Z79.899 Other long term (current) drug therapy; X58.XXXA Exposure to other specified factors, initial encounter; Y93.89 Activity, other specified; Y92.89 Other specified places as the place of occurrence of the external cause; Y99.8 Other external cause status
CPT/HCPCS: 29125; 73110; 73130; 99284; A4565

== ENCOUNTER 2024-04-02 19:23 | Emergency (ER) | payer MEDICAID ==
[~2024-04-02] VITALS: Ht 160 cm; Wt 111.0 kg
[2024-04-02 20:20] VITALS: TEMP 98.5; O2SAT 99
[2024-04-02] MEDS: ACETAMINOPHEN 325MG TABLET PO ONE (20:45)
[2024-04-02] MEDS ORDERED: ACET-2708 MT (21:09)
[2024-04-02 21:46] VITALS: BP 146/96; PULSE 81; RESP 18; O2SAT 98
== END 2024-04-02 21:46 | disposition home or self-care (01) ==
LOC: ER 19:23
DX: S67.195A Crushing injury of left ring finger, initial encounter (principal); J45.909 Unspecified asthma, uncomplicated; F31.9 Bipolar disorder, unspecified; F20.9 Schizophrenia, unspecified; R00.1 Bradycardia, unspecified; Z79.899 Other long term (current) drug therapy; X58.XXXA Exposure to other specified factors, initial encounter; Y93.89 Activity, other specified; Y92.89 Other specified places as the place of occurrence of the external cause; Y99.8 Other external cause status
CPT/HCPCS: 73140; 99283

== ENCOUNTER 2024-06-24 19:52 | Emergency (ER) | payer MEDICAID ==
[~2024-06-24] VITALS: Ht 160 cm; Wt 95.0 kg
[~2024-06-24 19:52] MED LIST changes: +ACET-2708 MT; +ALBU2SYR24 PO; -ALBU2SYR3 PO
[2024-06-24 19:56] VITALS: TEMP 98.1
[2024-06-24] MEDS ORDERED: METHYLPREDNISOLONE SOD SUCC 125MG/2ML (ACT-O-VIAL) IV NR (20:15)
[2024-06-24 21:18] LABS: HEMATOCRIT 43.6 % (36.0-48.0); HEMOGLOBIN 14.4 g/dL (12.0-16.0); MEAN CORPUSCULAR HEMOGLOBIN 28.7 pg (28.0-32.0); MEAN CORPUSCULAR VOLUME 86.8 fL (81.0-99.0); PLATELET 289 x1000/uL (130-400); RED BLOOD CELL COUNT 5.03 mill/uL (4.2-5.4); RED CELL DISTRIBUTION WIDTH 14.3 % (11.6-14.6); WHITE BLOOD COUNT 8.9 x1000/uL (4.5-11.0)
[2024-06-24 21:22] LABS: CHLORIDE 110 mEq/L (98-107); POTASSIUM 3.5 mEq/L (3.5-5.1); SODIUM 141 mEq/L (136-145)
[2024-06-24 21:23] LABS: CARBON DIOXIDE 24 mEq/L (21-32)
[2024-06-24 21:24] LABS: CALCIUM 8.8 mg/dL (8.7-10.4)
[2024-06-24 21:28] LABS: CREATININE 0.8 mg/dL (0.6-1.0); GLUCOSE 95 mg/dL (70-105)
[2024-06-24 21:29] LABS: UREA NITROGEN BLOOD 10 mg/dL (9-23)
[2024-06-24 21:30] LABS: ALANINE AMINOTRANSFERASE 15 IU/L (10-49); ALBUMIN 3.9 g/dL (3.2-4.8); ASPARTATE AMINOTRANSFERASE 19 IU/L (<34); TROPONIN I HIGH SENSITIVITY < 4 ng/L (3.0-34)
[2024-06-24 21:31] LABS: BILIRUBIN TOTAL 0.7 mg/dL (0.1-1.0)
[2024-06-24] MEDS: ALBUTEROL (0.083%) 2.5MG/3ML NEB HHN STA (21:42)
[2024-06-24] MEDS: IPRATROPIUM BROMIDE (0.02%) 0.5MG/2.5ML NEB HHN STA (21:43)
[2024-06-24] MEDS: IPRATROPIUM/ALBUTEROL 0.5-3(2.5)MG/3ML NEB HHN NR (21:44)
[2024-06-24 21:53] VITALS: PULSE 78; RESP 22; O2SAT 95
[2024-06-24 21:55] LABS: HCG SCREEN NEGATIVE
[2024-06-24] MEDS ORDERED: ALBU90AE INH (22:14)
[2024-06-24] MEDS ORDERED: ALBU2.5V13 NEB (22:14)
[2024-06-24] MEDS ORDERED: P20 MT (22:15)
[2024-06-24] MEDS ORDERED: TUSSL MT (22:16)
[2024-06-24] MEDS: METHYLPREDNISOLONE SOD SUCC 125MG/2ML (ACT-O-VIAL) IM ONE (23:10)
[2024-06-24 23:22] VITALS: BP 167/93; PULSE 112; RESP 22; O2SAT 100
== END 2024-06-24 23:28 | disposition home or self-care (01) ==
LOC: ER 19:52
DX: J45.901 Unspecified asthma with (acute) exacerbation (principal); F31.9 Bipolar disorder, unspecified; Z79.899 Other long term (current) drug therapy; Z90.710 Acquired absence of both cervix and uterus; Z98.890 Other specified postprocedural states; Z86.59 Personal history of other mental and behavioral disorders
CPT/HCPCS: 80053; 84703; 85027; 84484; 36415; 71045; 93005; 94644; 96372; 99285; J2919; Z7610 ×3; 94640

== ENCOUNTER 2024-07-18 20:58 | Emergency (ER) | payer MEDICAID ==
[~2024-07-18] VITALS: Ht 160 cm; Wt 112.0 kg
[~2024-07-18 20:58] MED LIST changes: +ALBU2.5V13 NEB; +ALBU90AE INH; +P20 MT
[2024-07-18 21:38] VITALS: O2SAT 100
[2024-07-18 22:01] VITALS: BP 118/80; PULSE 79; RESP 18; O2SAT 98
[2024-07-18] MEDS ORDERED: ACETAMINOPHEN 325MG TABLET PO ONE (22:15)
[2024-07-18] MEDS ORDERED: NAPR-1176 MT (23:02)
[2024-07-18 23:52] VITALS: TEMP 98.2
[2024-07-18] MEDS: ACETAMINOPHEN 325MG TABLET PO NR (23:52)
== END 2024-07-18 23:53 | disposition home or self-care (01) ==
LOC: ER 21:04
DX: S90.122A Contusion of left lesser toe(s) without damage to nail, initial encounter (principal); M79.675 Pain in left toe(s); J45.909 Unspecified asthma, uncomplicated; F10.90 Alcohol use, unspecified, uncomplicated; Z79.1 Long term (current) use of non-steroidal anti-inflammatories (NSAID); Z79.899 Other long term (current) drug therapy; W22.03XA Walked into furniture, initial encounter; Y93.89 Activity, other specified; Y92.89 Other specified places as the place of occurrence of the external cause; Y99.8 Other external cause status; Y90.9 Presence of alcohol in blood, level not specified
CPT/HCPCS: 73620; 99283

== ENCOUNTER 2024-11-26 23:41 | Emergency (ER) | payer MEDICAID ==
[~2024-11-26] VITALS: Ht 160 cm; Wt 117.0 kg
[~2024-11-26 23:41] MED LIST changes: +NAPR-1176 MT
[2024-11-26 23:46] VITALS: O2SAT 100
[2024-11-27 00:35] VITALS: BP 151/97; PULSE 80; RESP 18; TEMP 36.9; O2SAT 99
== END 2024-11-27 04:46 | disposition left against medical advice (07) ==
LOC: ER 23:41
DX: R51.9 Headache, unspecified (principal); Z53.21 Procedure and treatment not carried out due to patient leaving prior to being seen by health care provider
CPT/HCPCS: A4606